=== PATIENT | female | born 2000 | race Caucasian/White ===

== ENCOUNTER 2020-04-20 12:46 | Emergency (ER) | payer MEDICAID, SELFPAY ==
[~2020-04-20] VITALS: Ht 149.9 cm; Wt 49.9 kg
[2020-04-20 12:47] VITALS: BP 142/89; Ht 149.9 cm; Wt 49.9 kg
== END 2020-04-20 14:05 | disposition home or self-care (01) ==
LOC: ED 12:46
DX: U07.1 COVID-19 (principal)
CPT/HCPCS: U0003